=== PATIENT | female | born 1975 | race Hispanic/Latino ===

== ENCOUNTER 2021-08-12 18:36 | Emergency (ER) | payer SELFPAY ==
--- OUTSIDE RECORDS SUMMARY | 2021-08-12 18:41 | XMS REPORT | Continuity of Care Document ---
:1975 Author Organization [facility] t Address [address] [place] [address] Care Team Providers Name Role Phone GC_PFP_Penson_S Attending Clinician Unavailable Elmer Salazar Attending Clinician [phone] NHAN Attending Clinician Unavailable HOA Attending Clinician Unavailable Lab, Fam Raymundob I Attending Clinician Unavailable Hoa BLACKBURN Attending Clinician MARK Attending Clinician Unavailable SARAH Attending Clinician Unavailable CLIENT Attending Clinician Unavailable GC_PFP_Penson_S Admitting Clinician Unavailable FLORES Admitting Clinician Unavailable ABOYANIV Admitting Clinician Unavailable CLIENT Admitting Clinician Unavailable Payers Payer Name Policy Type Policy Number Effective Date Expiration Date S ource Problems Condition Condition Condition Status Onset Resolution Last Treating Co mments Source Name Details Category Date Date Treatment Clinician Date Neck pain Diagnosis Active 2016-03-25 Memoria 04:22:10 l Neck [place] pain Active Diagnosis 03/25/2016 eCW: [facility] Upper back Diagnosis Active 2016-03-25 Memoria pain 04:22:10 l [place] back pain Active Diagnosis 03/25/2016 eCW: [facility] Encounter Diagnosis Active 2016-03-25 Memoria for 04:22:10 l screening [place] Encounter for screening Active Diagnosis 03/25/2016 eCW: [facility] Arthralgia Diagnosis Active 2016-03-31 Memoria 04:23:03 l [place] Arthralgia Active Diagnosis 03/31/2016 eCW: [facility] Allergies, Adverse Reactions, Alerts Allergy Allergy Status Severity Reaction(s) Onset Inactive Treating Comm ents Source Name Type Date Date Clinician NO KNOWN Drug Active Univers ALLERGIE Class ity of S [facility] Social History Social Habit Start Date Stop Date Quantity Comments Source Exposure to SARS-CoV-2 Yes Un iversity of (event) [facility] AdvanceDirective 2016-03-24 2016-03-24 [facility] [place] 00:00:00 00:00:00 Sex Ass[birth year] At [birth year] Uni versity of 00:00:00 00:00:00 [facility] Smoking Status Start Date Stop Date Source Unknown if ever smoked Universit y of [facility] Medications Ordered Filled Start Stop Current Ordering Indication Dosage Frequency Signature Comments Components Source Medication Medication Date Date Medication? Clinician (SIG) Name Name Solodyn Yes Terese Unknown Memori a 03-25 [place] l 04:22: [place] 10 spironolact Yes Terese Unknown Me moria one 03-25 Garaghty l 04:22: [place] 10 Vital Signs Vital Name Observation Time Observation Value Comments Source Height 2016-03-24 19:00:00 [facility] [place] Weight 2016-03-24 [facility] Oral (F) 2016-03-24 19:00:00 96.0 F [facility] Diastolic (mm Hg) 2016-03-24 19:00:00 Mem orial [place] Systolic (mm Hg) 2016-03-24 19:00:00 Silverioleticia Smart Procedures Procedure Date / Time Performed Performing Clinician [facility] e Radiologic examination, 2016-03-24 05:00:00 Silverio Smart spine; thoracic, minimum of 4 views Encounters Start End Encounter Admission Attending Care Care Encounter Source Date/Time Date/Time Type Type Clinicians Facility Department ID 2021-08-05 2021-08-05 Outpatient GC_PFP_Pens PRIV PRIV [id number] [facility] 06:38:00 06:38:00 on_S [id number] Medica l 2021-08-01 2021-08-01 Outpatient GC_PFP_Pens PRIV PRIV [id number] [facility] 05:00:00 05:00:00 on_S [id number] Medica l 2021-07-31 2021-07-31 Outpatient GC_PFP_Pens PRIV PRIV [id number] [facility] 11:45:00 11:45:00 on_S [id number] Medica l 2021-07-31 2021-07-31 Outpatient Penson, PRIV PRIV [id number] 00:00:00 00:00:00 Akila [id number] Elmer [id number] 2021-03-03 2021-03-03 Outpatient NHAN, [facility] [id number] [place] 00:00:00 00:00:00 PAULY [address] 2021-02-23 2021-02-23 Outpatient [facility] [id number] [facility] 18:20:00 18:20:00 [facility] 2021-02-23 2021-02-23 Laboratory Lab, Adc Fam Pob I [facility] 1.2. [id number] Univers 14:21:14 14:41:14 [facility] [id number] [facility] [id number] Scott as Professio [id number] Il dical [address] Office [facility] 2021-02-10 2021-02-10 Outpatient [facility] [id number] [place] 00:00:00 00:00:[address] 2020-09-30 2020-09-30 Outpatient GC_PFP_Pens PRIV PRIV [id number] [facility] 02:03:00 02:03:00 on_S [id number] Medica l 2018-12-13 2018-12-13 Outpatient C Karine FLORES [facility] [id number] [facility] 09:18:00 23:59:00 Medica l [place] 2018-11-09 2018-11-09 Outpatient Karine SMITH [facility] [id number] [place] 10:11:00 23:59:00 TAREQ Medica l [place] 2018-10-11 2018-10-11 Outpatient C TIRSO, [facility] [id number] [place] 08:26:00 23:59:00 ACCOUNT Medica [facility] 2016-03-27 2016-03-27 Needs call nullFlavo [place] 3 [id number] Memoria 20:09:00 20:09:00 back from r Family [id number] l office Practice [id number] [facility] 2016-03-26 2016-03-26 xray nullFlavo [place] [id number] Mem[facility] 20:07:00 20:07:00 r Family [id number] l Practice [id number] [facility] [id number] 2016-03-26 2016-03-26 xray nullFlavo [place] [id number] [facility] 20:07:00 20:07:00 r Family [id number] l Practice [id number] [facility] [id number] 2016-03-24 2016-03-24 get est - nullFlavo [place] ad [id number] [facility] 19:00:00 19:00:00 spinal r Family [id number] l issues Practice [id number] [facility] [id number] 2016-03-24 2016-03-24 get est - nullFlavo [place] c5 [id number] [facility] 19:00:00 19:00:00 spinal r Family [id number] l issues Practice [id number] Herm [facility] [id number] 2016-03-24 2016-03-24 get est - nullFlavo [place] 95 [id number] Memoria 19:00:00 19:00:00 spinal r Family [id number] l issues Practice [id number] [facility] [place] [id number] 2016-03-24 2016-03-24 Outpatient nullFlavo SGSH [id number] [facility] 15:32:31 15:32:31 lona Smart Results Test Description Test Time Test Comments Results Result Sourc e Comments MAMMOGRAM 2018-12-15 Exam: Bilateral digital SCREENING CAD INC 14:00:59 mammogramLocation: G0202 [id number]: Routine screening.Comparison: 06/30/16FINDINGS:No dominant masses or clustered microcalcifications are identified. The breastparenchyma remains heterogeneously dense without change. R2 computer aided detection was utilized as an aid for interpreting theseimages.IMPRESSION:1 . ACR BI-RADS 1, negative.Recommendation: Routine yearly mammographic follow-up recommended. SHAHLA (ANTINUCLEAR ANTIBODY) *WW* 2018-11-11 14:54:00 Test Item Value Reference Range Interpretation Comme nts SHAHLA IFA SCREEN NEGATIVE NEGATIVE SHAHLA IFA is a first line screen for detecting W/REFLEX TO thepresence of up to approximately 150 autoantibodies TITER/PATTERN invarious auto immune diseases. A negative SHAHLA IFA (test code = resultsuggests SHAHLA-associated autoimmune diseases are [id number]) notpresent at t his time.Visit Physician FAQs for interpretation of allantibodies in the [place], prevalence, and associationwith diseases at [email or web address] PERFORMED AT:[employer]-[id number] [place] [address]ACGFMXBILL NEGRO MD DNA ANTIBODY (DOUB STRAND) *WW*2018-11-11 05:44:00 Test Item Value Reference Range Interpretation Comments DNA (DS) ANTIBODY 33 IU/mL H (test code = IU/mL [id number]) Interpretation < or = 4 Negative 5-9 Indeterminate > or = 10 PositiveTEST PE RFORMED AT:[facility] [id number] [place] [address]ZLPMDMANDEEP NEGRO MD COMPLEMENT 4 WW2018-11-10 15:10:00 Test Item Value Reference Range Interpretation Comments COMPLEMENT COMPONENT 28 mg/dL 15-57 TEST PE RFORMED AT:[facility] (test code = DIAGNOSTICS [id number]) [place] [address]DRES PRICE M.D. COMPLEMENT 3 *WW*2018-11-10 15:09:00 Test Item Value Reference Range Interpretation Comments COMPLEMENT COMPONENT 122 mg/dL 83-193 TEST PE RFORMED C3C (test code = AT:[facility] [id number]) [id number] [place] [address]XYCTWOH PRICE M.D. VITAMIN D TOTAL 25 (OH)2018-11-09 13:17:00 Test Item Value Reference Range Interpretation Comments VITAMIN D 25(OH) (test code = VD) 19.2 ng/mL 30.0-100.0 L RA LATEX AGGLUTINATION WW2018-11-09 12:49:00 Test Item Value Reference Range Interpretation Comments RA LATEX (test code = RA) NEGATIVE NEGATIVE CREATININE RANDOM URINE *WW*2018-11-09 11:19:00 Test Item Value Reference Range Interpretation Comments NRR (test code = * NO REFRENCE RANGE NRR) AVAILABLE FOR RANDOM SPECIMEN* CREA RAND (test code 225.0 mg/dL = CREAR) ERYTHROCYTE SED RATE *WW*2018-11-09 11:17:00 Test Item Value Reference Range Interpretation Comments SED RATE (test code = SEDR) 7 mm/hr 0-20 THYROID PANEL/SCREEN (TSH) *WW*2018-11-09 11:15:00 Test Item Value Reference Range Interpretation Comments TSH (test code = WTSH) 2.430 uIU/mL 0.358-3.740 COMPREHENSIVE METABOLIC TRUJILLO *WW*2018-11-09 11:13:00 Test Item Value Reference Range Interpretation Comments GLUCOSE (test code = 06D) 77 mg/dL 75-100 SODIUM (test code = 01A) 141 mmol/L 136-145 POTASSIUM (test code = 01B) 3.8 mmol/L 3.6-5.1 CHLORIDE (test code = 04A) 106 mmol/L 98-107 CO2 (test code = 02A) 29 mmol/L 22-32 ANION GAP (test code = ANG) 9.9 mmol/L BUN (test code = 05D) 12 mg/dL 7-18 CREATININE (test code = 03E) 0.6 mg/dL 0.4-1.1 BUN/CREA (test code = BCR) 19 12-20 CALCIUM (test code = 09D) 8.8 mg/dL 8.3-9.5 BILI TOTAL (test code = 11A) 0.4 mg/dL 0.2-1.0 PROTEIN (test code = 07D) 7.2 g/dL 6.4-8.2 ALBUMIN (test code = 08D) 3.5 g/dL 3.5-4.8 GLOBULIN (test code = GLB) 3.7 g/dL 1.5-3.8 ALB/GLOB (test code = AGRR) 1.0 1.0-2.6 ALK PHOS (test code = 35A) 57 IU/L 42-121 AST (test code = 30A) 13 IU/L <=42 ALT (test code = 31A) 19 IU/L <=78 PROTEIN URINE RANDOM *WW*2018-11-09 11:02:00 Test Item Value Reference Range Interpretation Comments PROT RAND (test code 12 mg/dL = MS) NRR (test code = * NO REFRENCE RANGE NRR) AVAILABLE FOR RANDOM SPECIMEN* URINALYSIS WITH MICRO 2018-11-09 10:59:00 Test Item Value Reference Range Interpretation Comments COLOR (test code = COLU) YELLOW YELLOW CLARITY (test code = CLA) SLT HAZY CLEAR A GLUCOSE UR (test code = UA GLUCOSE) NEGATIVE NEGATIVE BILI UR (test code = BILE) NEGATIVE NEGATIVE KETONES UR (test code = SHAWN) NEGATIVE NEGATIVE SP GRAVITY (test code = SPGR) >=1.030 1.005-1.030 PH UR (test code = PH) 6.0 4.5-8.0 PROTEIN UR (test code = PU) NEGATIVE NEGATIVE UROBIL UR (test code = UROQ) 0.2 EU/dL 0.2-1.0 NITRITE UR (test code = NITRITE) NEGATIVE NEGATIVE BLOOD UR (test code = UA BLOOD) 1+ NEGATIVE A LEUK ES UR (test code = LEUK) NEGATIVE NEGATIVE WBC UR (test code = UWBC) 0 /HPF 0-5 RBC UR (test code = URBC) 0 /HPF 0-2 EPITH UR (test code = UEPC) FEW /LPF FEW BACTERIA UR (test code = UBACT) FEW /HPF NONE A CAST UR (test code = CAST) /LPF NONE CRYSTAL UR (test code = CRYU) / LPF NONE MUCUS UR (test code = MUC) / HPF NONE AMORPH UR (test code = VIRA) / HPF NONE TRICH UR (test code = UTRICH) /HPF NONE YEAST UR (test code = UY) /HPF NONE SPERM UR (test code = USPERM) /HPF NONE CBC (INCLUDES AUTOMATED DIFFERENTIAL)*[id number] 10:51:00 Test Item Value Reference Range Interpretation Comments WBC (test code = WBC) 6.8 10\S\3/uL 4.5-11.0 RBC (test code = RBC) 4.78 10\S\6/uL 4.30-5.70 HGB (test code = HBG) 13.3 g/dL 12.0-15.5 HCT (test code = HCT) 40.3 % 35.0-44.0 MCV (test code = MCV) 84.3 fL 81.0-99.0 MCH (test code = MCH) 27.8 pg 27.0-31.0 MCHC (test code = MCHC) 33.0 g/dL 32.0-36.0 RDW (test code = RDW) 12.8 % 11.5-14.5 PLT (test code = PLT) 244 10\S\3/uL 130-400 MPV (test code = MPV) 9.5 fL 9.4-12.4 NEUTROP # (test code = NE#) 5.3 10\S\3/uL 1.6-8.0 LYMPH # (test code = LY#) 1.1 10\S\3/uL 1.1-3.5 MONOCYTE # (test code = MO#) 0.4 10\S\3/uL 0.0-1.1 EOSINOPH # (test code = EO#) 0.0 10\S\3/uL 0.0-0.7 BASOPHIL # (test code = BA#) 0.0 10\S\3/uL 0.0-0.3 IG # (test code = IG#) 0.01 10\S\3/uL 0.00-0.06 NRBC # (test code = NRBC#) 0.00 10\S\3/uL 0.00-0.01 NEUTROPH % (test code = NE%) 76.9 % 35.0-73.0 H LYMPH % (test code = LY%) 16.2 % 20.0-55.0 L MONO % (test code = MO%) 6.3 % 2.5-10.0 EOSINOPH % (test code = EO%) 0.4 % 0.0-5.0 BASOPHIL % (test code = BA%) 0.1 % 0.0-2.0 IG % (test code = IG%) 0.1 % 0.0-0.8 NRBC% (test code = NRBC%) 0.0 % 0.0-0.2 MANDIFF (test code = WMDIFF) NO NO RBC MORPH (test code = NORMAL WRBCMOR) [id number] 09:19:00 Test Item Value Reference Range Interpretation Comments Hb A1C % (test code = HBA) 5.0 % 4.2-6.3 LIPID [id number] 09:17:00 Test Item Value Reference Range Interpretation Comments CHOLESTROL (test code = 44A) 131 mg/dL 140-200 L TRIGLYCERI (test code = 42B) 53 mg/dL <=149 HDL (test code = 83D) 51.0 mg/dL 40.0-60.0 LDL (test code = 34B) 76 mg/dL <=99 CHL/HDL (test code = CHR) 2.6 0.0-3.4 [id number] 09:11:00 Test Item Value Reference Range Interpretation Comments GLUCOSE (test code = 06D) 90 mg/dL 75-100
[2021-08-12] MEDS ORDERED: DIAZEPAM 5 MG TABLET ONE (19:49)
[2021-08-12] MEDS ORDERED: dexAMETHasone 10 MG/ML VIAL ONE (19:49)
[2021-08-12] MEDS ORDERED: KETOROLAC 30 MG/ML INJ ONE (19:49)
--- NOTE | 2021-08-12 20:54 | EDPHYS ---
Physician Documentation [facility] Name: Sandra Gruber Age: 46 yrs Sex: Female : 1975 Arrival Date: 08/12/2021 Time: 18:41 Bed DX1 Private MD: ED Physician Percy Caro HPI: 08/12 20:48 This 46 yrs old Female presents to ER via Ambulatory with complaints of Back jmm Pain, Leg Pain. 20:48 The patient presents with pain that is acute. Onset: The symptoms/episode jmm began/occurred gradually, 3 day(s) ago. The pain radiates to the right leg. Associated signs and symptoms: Pertinent negatives: abdominal pain, chest pain, constipation, dysuria, fever, headache, hematuria, incontinence, nausea, numbness, tingling, urinary retention, vomiting, weakness. The problem was sustained when bending over, from twisting. This is a 46 year old female with a history of lupus that presents to the ED with complaints of right sided back pain beginning approx 3 days ago. This occurred while the patient was bending. Patient states she has also been in the process of moving. . 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 - Social history:: Smoking status: Patient denies any tobacco usage or history of. Patient/guardian denies using alcohol. ROS: 20:48 Constitutional: Negative for fever, chills, and weight loss, Cardiovascular: Negative jmm for chest pain, palpitations, and edema, Respiratory: Negative for shortness of breath, cough, wheezing, and pleuritic chest pain. 20:48 Back: Positive for pain with movement. 20:48 All other systems are negative. Exam: 20:48 Constitutional: This is a well developed, well nourished patient who is awake, alert, jmm and in no acute distress. Head/Face: atraumatic. Eyes: EOMI, no conjunctival erythema appreciated ENT: Moist Mucus Membranes Neck: Trachea midline, Supple Chest/axilla: Normal chest wall appearance and motion. Cardiovascular: Regular rate and rhythm. No edema appreciated Respiratory: Normal respirations, no respiratory distress appreciated Abdomen/GI: Non distended, soft 20:48 Skin: General appearance color normal MS/ Extremity: Moves all extremities, no obvious deformities appreciated, no edema noted to the lower extremities 20:48 Back: pain, that is moderate, of the right low back, vertebral tenderness, is not appreciated. 20:48 Neuro: extensor hallucis longus intact bilaterally. 20:48 Psych: Behavior/mood is pleasant, cooperative. Vital Signs: 19:15 BP 155 / 95; Pulse 85; Resp 18; Temp 98.7(O); Pulse Ox 100% ; Weight 54.43 kg; Height 5 ld1 ft. 1 in. (154.94 cm); Pain 10/10; 19:15 Body Mass Index 22.67 (54.43 kg, 154.94 cm) ld1 MDM: 19:40 Patient medically screened. [facility] 20:51 Data reviewed: vital signs, nurses notes. Counseling: I had a detailed discussion with valeriy the patient and/or guardian regarding: the historical points, exam findings, and any diagnostic results supporting the discharge/admit diagnosis, the need for outpatient follow up, to return to the emergency department if symptoms worsen or persist or if there are any questions or concerns that arise at home. ED course: I do not suspect spinal abscess, cauda equina, or cord compression. Patient advised to follow up with pain management for further evaluation. Patient otherwise given strict return precautions. Patient understood and agrees with the plan of care. . Administered Medications: 19:53 Drug: Ketorolac 30 mg Route: IM; Site: left gluteus; ld1 21:21 Follow up: Response: No adverse reaction ld1 19:53 Drug: Valium (diazepam) 5 mg Route: PO; ld1 21:21 Follow up: Response: No adverse reaction ld1 19:53 Drug: Decadron (dexamethasone) 10 mg Route: IM; Site: left gluteus; ld1 21:21 Follow up: Response: No adverse reaction ld1 Disposition: 23:19 Co-signature as Attending Physician, Darek burrows Disposition Summary: 08/12/21 20:53 Discharge Ordered Location: Home jmm Condition: Stable jmm Diagnosis - Low back pain jmm Followup: jmm - With: Private Physician - When: 2 - 3 days - Reason: Recheck today's complaints, Continuance of care, Re-evaluation by your physician Discharge Instructions: - Discharge Summary Sheet jmm - Acute Back Pain, Adult jmm - Back Exercises jmm - Sciatica Rehab-SportsMed jmm Forms: - Medication Reconciliation Form jmm - Thank You Letter jmm - Antibiotic Education jmm - Prescription Opioid Use jmm Prescriptions: - Cyclobenzaprine 5 mg Oral Tablet - take 1 tablet by ORAL route 3 times per day As needed; 30 tablet; Refills: 0, jmm Product Selection Permitted - Ibuprofen 600 mg Oral Tablet - take 1 tablet by ORAL route every 6 hours As needed take with food; 30 tablet; jmm Refills: 0, Product Selection Permitted Signatures: Percy Caro MD MD pkDarek Dalton PA PA jmm Dibbern, Lauren RN RN ld1 Corrections: (The following items were deleted from the chart) 19:18 19:16 Home Meds: None; ld1 ld1 19:18 19:16 PMHx: None; ld1 ld1
--- NOTE | 2021-08-12 20:54 | ER ---
Nurse's Notes [facility] Name: Sandra Gruber Age: 46 yrs Sex: Female : 1975 Arrival Date: 08/12/2021 Time: 18:41 Bed DX1 Private MD: Diagnosis: Low back pain Presentation: 08/12 19:15 Chief complaint: Patient states: Last 3 days I have had sciatic pain. I usually use a ld1 heating pad and ibuprofen - I don't know what is going on but this pain is not going away. I tried to pick up attendant a cord off of the ground and I got stuck. Coronavirus screen: At this time, the client does not indicate any symptoms associated with coronavirus-19. Ebola Screen: No symptoms or risks identified at this time. Initial Sepsis Screen: Does the patient meet any 2 criteria? No. Patient's initial sepsis screen is negative. Does the patient have a suspected source of infection? No. Patient's initial sepsis screen is negative. Risk Assessment: Do you want to hurt yourself or someone else? Patient reports no desire to harm self or others. Onset of symptoms was August 12, 2021. 19:15 Method Of Arrival: Ambulatory ld1 19:15 Acuity: YULIET 4 ld1 Triage Assessment: 19:16 General: Appears in no apparent distress. comfortable, Behavior is calm, cooperative, ld1 appropriate for age. Pain: Complains of pain in buttocks. Neuro: Level of Consciousness is awake, alert, obeys commands, Oriented to person, place, time, situation. Respiratory: Airway is patent Respiratory effort is even, unlabored. Musculoskeletal: Reports pain in buttocks. 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 - Social history:: Smoking status: Patient denies any tobacco usage or history of. Patient/guardian denies using alcohol. Screenin:20 Abuse screen: Denies threats or abuse. Nutritional screening: No deficits noted. ld1 Tuberculosis screening: No symptoms or risk factors identified. Fall Risk None identified. Vital Signs: 19:15 BP 155 / 95; Pulse 85; Resp 18; Temp 98.7(O); Pulse Ox 100% ; Weight 54.43 kg; Height 5 ld1 ft. 1 in. (154.94 cm); Pain 10/10; 19:15 Body Mass Index 22.67 (54.43 kg, 154.94 cm) ld1 ED Course: 18:41 Patient arrived in ED. mr 19:16 Triage completed. ld1 19:16 Arm band placed on left wrist. ld1 19:23 Darek Mojica PA is PHCP. [facility] 19:23 Percy Caro MD is Attending Physician. [facility] 21:20 Patient has correct armband on for positive identification. Warm blanket given. ld1 21:20 No provider procedures requiring assistance completed. Patient did not have IV access ld1 during this emergency room visit. Administered Medications: 19:53 Drug: Ketorolac 30 mg Route: IM; Site: left gluteus; ld1 21:21 Follow up: Response: No adverse reaction ld1 19:53 Drug: Valium (diazepam) 5 mg Route: PO; ld1 21:21 Follow up: Response: No adverse reaction ld1 19:53 Drug: Decadron (dexamethasone) 10 mg Route: IM; Site: left gluteus; ld1 21:21 Follow up: Response: No adverse reaction ld1 Outcome: 20:53 Discharge ordered by . [facility] 21:20 Discharged to home ambulatory, with family. ld1 21:20 Condition: stable 21:20 Discharge instructions given to patient, Instructed on follow up and referral plans. 21:21 Patient left the ED. ld1 Signatures: Darek Mojica PA PA jmm Rivera, Mary Yolanda Hernandez, RN RN ld1 Corrections: (The following items were deleted from the chart) 19:18 19:16 Home Meds: None; ld1 ld1 19:18 19:16 PMHx: None; ld1 ld1 19:19 19:15 Resp 18bpm; 54.43 kg; Height 5 ft. 1 in.; BMI: 22.6; Pain 10/10; ld1 ld1
[2021-08-12 22:25] VITALS: BP 155/95; TEMP 98.7; O2SAT 100
== END 2021-08-12 21:21 | disposition home or self-care (01) ==
LOC: ER 18:36
DX: M54.50 Low back pain, unspecified (principal)
CPT/HCPCS: 96372; 99283; J1100